=== PATIENT | male | born 1980 | race Native Hawaiian/Other Pacific Islander ===

== ENCOUNTER 2018-08-25 14:49 | Emergency (ER) | payer OTHER ==
[2018-08-25 15:46] LABS: BASO # 0.1 10^3/uL (0.0-0.2); BASO % 0.8 % (0.0-1.0); EOS # 0.5 10^3/uL (0.0-0.50); EOS % 4.4 % (0.0-3.0); HEMATOCRIT 47.4 % (42.0-52.0); HEMOGLOBIN 16.2 g/dl (13.5-17.5); IMMATURE GRANULOCYTE % 0.3 % (0-3.0); LYMPH % 19.5 % (24.0-44.0); MEAN CORPUSCULAR HEMOGLOBIN 29.6 pg (27.0-33.0); MEAN CORPUSCULAR HGB CONC 34.2 g/dl (32.0-36.5); MEAN CORPUSCULAR VOLUME 86.7 fl (80.0-96.0); MONO # 0.7 10^3/uL (0.0-0.8); NEUTROPHILS # 7.1 10^3/uL (1.8-7.7); PLATELET COUNT, AUTOMATED 256 10^3/uL (150-450); RED BLOOD COUNT 5.47 10^6/uL (4.30-6.10); RED CELL DISTRIBUTION WIDTH 12.6 % (11.5-14.5); WHITE BLOOD COUNT 10.4 10^3/uL (4.0-10.0)
[2018-08-25 15:56] LABS: INR 0.87; PROTHROMBIN TIME 11.9 SECONDS (12.1-14.4)
[2018-08-25 16:19] LABS: ALBUMIN 4.5 GM/DL (3.2-5.2); ALBUMIN/GLOBULIN RATIO 1.18 (1.00-1.93); ALKALINE PHOSPHATASE 81 U/L (45-117); ALT/SGPT 113 U/L (12-78); ANION GAP 8 MEQ/L (8-16); AST/SGOT 37 U/L (7-37); BILIRUBIN,DIRECT 0.2 MG/DL (0.0-0.2); BILIRUBIN,TOTAL 0.8 MG/DL (0.2-1.0); BLOOD UREA NITROGEN 10 MG/DL (7-18); CALCIUM LEVEL 9.5 MG/DL (8.5-10.1); CARBON DIOXIDE LEVEL 29 MEQ/L (21-32); CHLORIDE LEVEL 105 MEQ/L (98-107); CK-MB VALUE MASS < 1.0 NG/ML (<3.6); CPK CREATINE PHOSPHOKINASE 112 U/L (39-308); GLOMERULAR FILTRATION RATE > 60.0 (>60); GLUCOSE, FASTING 85 MG/DL (70-100); MB/CK RELATIVE INDEX 0.89 (< OR =4); POTASSIUM SERUM 3.8 MEQ/L (3.5-5.1); SODIUM LEVEL 142 MEQ/L (136-145); THYROXINE (T4) 8.2 UG/DL (4.5-12.0); TOTAL PROTEIN 8.3 GM/DL (6.4-8.2); TROPONIN I < 0.02 NG/ML (< 0.10)
[2018-08-25] MEDS ORDERED: ISOVUE-370 76% 100ML VIAL (Q9967) As Ordered (16:52)
[2018-08-25] MEDS: AZITHROMYCIN 250 MG TAB PO (18:11)
== END 2018-08-25 18:15 | disposition home or self-care (01) ==
LOC: M ED 14:49
DX: J18.9 Pneumonia, unspecified organism (principal)
CPT/HCPCS: Q9967

== ENCOUNTER 2018-11-03 10:14 | Emergency (ER) | payer OTHER ==
[2018-11-03] MEDS: TETRACAINE 0.5% OPHTH SOLN 4ML OS (10:30)
[2018-11-03] MEDS: FLUORESCEIN OPHTH 1 MG STRIP OS (10:30)
== END 2018-11-03 11:03 | disposition home or self-care (01) ==
LOC: M ED 10:14
DX: S05.02XA Injury of conjunctiva and corneal abrasion without foreign body, left eye, initial encounter (principal); Y99.9 Unspecified external cause status; Y92.89 Other specified places as the place of occurrence of the external cause
CPT/HCPCS: 99283

== ENCOUNTER 2019-01-31 09:24 | Day surgery (SDC) | payer OTHER ==
[~2019-01-31] VITALS: Ht 167.6 cm; Wt 80.2 kg
[~2019-01-31 09:24] MED LIST: AZIT-12 PO; BUPIVACAINE HCL 0.5% 10 ML VIAL As Ordered ONE; ERYTOIN8 OS; LIDOCAINE 1% MDV 20ML VIAL As Ordered ONE
[2019-01-31] MEDS ORDERED: ONDANSETRON 4MG/2ML VIAL (J2405) As Ordered ONE (11:17)
[2019-01-31] MEDS ORDERED: LIDOCAINE 2% INJ 100 MG/5 ML SDV (FOR ANES.) As Ordered ONE (11:17)
[2019-01-31] MEDS ORDERED: PROPOFOL 200 MG/20 ML VIAL As Ordered ONE ×2 (11:17→13:48)
[2019-01-31] MEDS ORDERED: dexameTHASONE 4 MG/ML 1ML VIAL (J1100) As Ordered ONE (11:17)
[2019-01-31] MEDS ORDERED: MIDAZOLAM INJ 2 MG/2 ML VIAL (J2250) As Ordered ONE (11:22)
[2019-01-31] MEDS ORDERED: fentaNYL 100 MCG/2 ML INJECTION (J3010) As Ordered ONE (11:22)
[2019-01-31] MEDS ORDERED: LR 1,000 ML IV ONE (12:00)
[2019-01-31] MEDS ORDERED: KETAMINE HCL 200 MG/20 ML VIAL As Ordered ONE (12:28)
[2019-01-31] MEDS: dexameTHASONE 4 MG/ML 1ML VIAL (J1100) As Ordered ONE ×2 (14:11→14:21)
[2019-01-31] MEDS ORDERED: ACETAMINOPHEN 500 MG TAB As Ordered ONE (14:42)
[2019-01-31] MEDS ORDERED: MORPHINE 10 MG/ML 1ML VIAL (J2270) As Ordered ONE (14:42)
[2019-01-31] MEDS: MORPHINE 10 MG/ML 1ML VIAL (J2270) IV PRN ×5 (14:45→15:05)
[2019-01-31] MEDS ORDERED: diphenhydrAMINE INJ 50MG/ML VIAL (J1200) IV PRN (15:00)
[2019-01-31] MEDS ORDERED: PROMETHAZINE INJ 25 MG/ML VIAL (J2550) IV PRN (15:00)
[2019-01-31] MEDS ORDERED: ACETAMINOPHEN 500 MG TAB PO PRN (15:00)
[2019-01-31] MEDS ORDERED: ONDANSETRON 4MG/2ML VIAL (J2405) IV PRN (15:00)
[2019-01-31] MEDS ORDERED: KETOROLAC 30 MG/ML VIAL (J1885) IV PRN (15:00)
[2019-01-31] MEDS ORDERED: fentaNYL 100 MCG/2 ML INJECTION (J3010) IV PRN (15:00)
--- NOTE | 2019-01-31 15:02 | RO ---
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 SURGEON: Dr. Wyatt Andre DPM. TRADEMARK ATTORNEY: None. ANESTHESIA: Monitored anesthesia care. Preoperative injection of 20 mL of 1:1 mixture of 1% lidocaine plain, 0.5% Marcaine plain. ESTIMATED BLOOD LOSS: Minimal. MATERIALS: #3-0 and #4-0 Vicryl. Arthrex internal brace repair system. Two suture anchors Arthrex BioComposite 3 mm. COMPLICATIONS: None. CONDITION: Stable. Ravi Chavez is a 38-year-old male who presents to [facility] with chronic instability to his left ankle. He has had multiple ankle sprains in the past. He has been treated with numerous conservative treatments over years without resolution. He presents today for surgical correction. The patient's side and site were identified and marked in the pre-holding area. Consent was reviewed and obtained. All risks, complications and alternatives to the procedure were explained to the patient in detail and all questions were answered. DESCRIPTION OF PROCEDURE: Patient was brought to the operating room and placed on the operating room table in supine position. Monitored anesthesia care was delivered by the anesthesia team. Preoperative injection of 20 mL of 1:1 mixture of 1% lidocaine plain, 0.5% Marcaine plain were injected in the left foot. The left foot was prepped and draped in a normal sterile fashion. The patient was shifted to a more lateral positions using a beanbag. A tourniquet was applied to the left thigh and inflated to 275 mmHg. A curvilinear incision was made over the lateral ankle extending from the distal fibula to past the talus. This was carried through with a #15 blade. Dissection was carried down to the joint capsule. Bovie was used to maintain hemostasis. The distal fibula was identified and its attachment to the anterior talofibular ligament was noted. Using a #15 blade, this was incised. The joint itself was inspected and no cartilage defects were noted. Following this, the two Arthrex 3 mm suture anchors were placed in the distal fibula. Next, the suture anchor for the internal brace was placed into the talus. The holding the foot into neutral with slight eversion, the ligament was repaired to the suture anchors in the fibula. Following this, the suture anchor for the internal brace was inserted into the distal fibula between the two 3 mm anchors and the internal brace was tensioned according to protocol using a hemostat to keep some space between the internal brace and the ligament itself. There was less instability noted following repair. Following this, the retinaculum was used as a ancillary repair. The site was irrigated with normal saline and the incision was closed using #3-0 Vicryl, #4-0 Vicryl and #4-0 nylon. Posterior spline was applied. Sterile dressings were applied prior to the posterior splint. Tourniquet was deflated. The patient was brought to the postanesthesia care unit (PACU) vital signs stable, neurovascular status intact. He will be non-weightbearing to his left lower leg. He will followup in the office in 2 days. TEQUILA
[2019-01-31 16:15] VITALS: BP 139/86
== END 2019-01-31 16:44 | disposition home or self-care (01) ==
LOC: M SDC 09:24
PROVIDERS: ATTEND Podiatrist Foot & Ankle Surgery
DX: M25.372 Other instability, left ankle (principal); S93.492S Sprain of other ligament of left ankle, sequela; X50.0XXS Overexertion from strenuous movement or load, sequela; G43.909 Migraine, unspecified, not intractable, without status migrainosus; Z86.11 Personal history of tuberculosis; Z87.891 Personal history of nicotine dependence
CPT/HCPCS: 27698; 97116; C1713; J0690; J1100; J1885; J2250; J2270; J2405; J3010